=== PATIENT | female | born 1990 | race Caucasian/White ===

== ENCOUNTER 2016-11-16 10:07 | Emergency (ER) | payer BC, OTHER ==
[~2016-11-16] VITALS: Ht 157.5 cm; Wt 49.9 kg
[~2016-11-16 10:07] MED LIST: CYCL10TA9 PO; DOXY100C2 PO; HYDR-2997 PO; HYDR-3583 PO; HYDR1CAP2 PO; HYDR1TAB; HYDR1TAB PO; HYOS0.1283 SL; METH4TAB PO; NAPR-243 PO; OMEP20CA6; ONDA8TAB9 PO; PRM25T PO; SULF1TAB35 PO; SULF1TAB7 PO; TRAM-42 PO; TRM50T PO
--- OUTSIDE RECORDS SUMMARY | 2016-11-16 10:17 | XMS REPORT | Continuity of Care Document ---
Author Author [facility] Organization [facility] Address Unknown Phone Unavailable Care Team Providers Care Technical Training Specialist Name Role Phone Nitishminaghassan Jonathan PCP [phone] Source Comments Some departments are not documenting in the electronic medical record. If you do not see the information that you expected, contact Release of Information in the Health Information Management department at [phone] for further assistance in locating additional records.[facility] Active Allergies and Adverse Reactions No Known Allergies Current Medications Prescription Sig. Disp. Refills Start End Date Status Date citalopram (CELEXA) 10 mg Take 10 mg by mouth Active tablet daily. loratadine (CLARITIN) 10 Take 10 mg by mouth Active mg tablet daily. acetaminophen (TYLENOL) Take 325 mg by mouth as Active 325 mg tablet Needed. nebivolol (BYSTOLIC) 10 Take 10 mg by mouth Active mg tablet daily. magnesium Take 400 mEq by mouth Active daily. VITAMIN E (DL,TOCOPHERYL Take by mouth twice Active ACET) (VITAMIN E (DL, weekly. ACETATE) PO) ibuprofen (MOTRIN) 400 mg Take 400 mg by mouth Active tablet every 6 hours as needed. diphenhydrAMINE Take 25 mg by mouth every Active (BENADRYL) 25 mg capsule 6 hours as needed. Active Problems Problem Noted Date Thyroid nodule 02/08/2014 Cervical adenopathy 02/08/2014 Social History Tobacco Use Types Packs/Day Years Used Date Current Every Day Smoker Cigarettes 0.5 10 Smokeless Tobacco: Never Used Tobacco Cessation: Ready to Quit: Yes; Counseling Given: Yes Comments: Counseling given 02.08.14 Alcohol Use Drinks/Week oz/Week Comments No Last Filed Vital Signs Vital Sign Reading Time Taken Blood Pressure 101/65 04/12/2014 2:24 PM CDT Pulse 89 04/12/2014 2:24 PM CDT Temperature 36.8 C (98.2 F) 02/19/2014 10:42 AM CDT Respiratory Rate - - Height 1.575 m (5' 2") 04/12/2014 2:24 PM CDT Weight 67.858 kg (149 lb 9.6 oz) 04/12/2014 2:24 PM CDT Body Mass Index 27.36 04/12/2014 2:24 PM CDT Oxygen Saturation 93% 02/19/2014 12:30 PM CDT Plan of Care Health Maintenance Due Date Last Done Comments Physical (Comprehensive) 1995 Exam Pertussis Vaccine 1999 Tetanus Vaccine 2005 Cervical Cancer Screening 2009 Influenza Vaccine 06/25/2016 Results from Last 3 Months Not on file
[2016-11-16] MEDS ORDERED: DICY20TA10 PO (10:33)
[2016-11-16] MEDS ORDERED: BUSP5TAB59 PO (10:33)
[2016-11-16] MEDS ORDERED: CITA20TA12 PO (10:33)
[2016-11-16] MEDS ORDERED: METO-333 PO (10:33)
[2016-11-16] MEDS ORDERED: TRAM50TA2 PO (10:33)
[2016-11-16] MEDS ORDERED: HYDR-3820 PO (10:33)
[2016-11-16] MEDS ORDERED: [UNRECOGNIZED DRUG - OTHER] (10:38)
[2016-11-16 10:44] LABS: BASOPHILS % (AUTO) 0 % (0-10); EOSINOPHILS # (AUTO) 0.1 10^3/uL (0.0-0.3); EOSINOPHILS % (AUTO) 1 % (0-10); LYMPHOCYTES # (AUTO) 1.8 X 10^3 (1.0-4.0); LYMPHOCYTES % (AUTO) 28 % (12-44); MEAN CORPUSCULAR HEMOGLOBIN 30 PG (25-34); MEAN CORPUSCULAR HGB CONC 33 G/DL (32-36); MEAN CORPUSCULAR VOLUME 90 FL (80-99); MEAN PLATELET VOLUME 8.4 FL (7.4-10.4); MONOCYTES # (AUTO) 0.6 X 10^3 (0.0-1.0); MONOCYTES % (AUTO) 10 % (0-12); NEUTROPHILS # (AUTO) 3.9 X 10^3 (1.8-7.8); NEUTROPHILS % (AUTO) 61 % (42-75); PLATELET COUNT 343 10^3/uL (130-400); RED BLOOD COUNT 4.18 10^6/uL (4.35-5.85); RED CELL DISTRIBUTION WIDTH 13.1 % (10.0-14.5); WHITE BLOOD COUNT 6.3 10^3/uL (4.3-11.0)
[2016-11-16] MEDS ORDERED: fentaNYL INJECTION 100 MCG/2 ML AMP IVP ONE (10:45)
[2016-11-16] MEDS ORDERED: ONDANSETRON 4 MG/2 ML (SDV) Z0FRAN IVP ONE (10:45)
[2016-11-16] MEDS ORDERED: NS IV 1000 ML 1,000 ML IV SCH (10:45)
[2016-11-16 11:05] LABS: BILIRUBIN,URINE NEGATIVE (NEGATIVE); KETONES,URINE NEGATIVE (NEGATIVE); LEUKOCYTE ESTERASE ,URINE NEGATIVE (NEGATIVE); NITRITE,URINE NEGATIVE (NEGATIVE); PH,URINE 6.5 (5-9); PROTEIN,URINE NEGATIVE (NEGATIVE); UROBILINOGEN,URINE NORMAL (NORMAL)
[2016-11-16 11:09] LABS: ALANINE AMINOTRANSFERASE 27 U/L (0-55); ALBUMIN 4.1 G/DL (3.2-4.5); AMYLASE 40 U/L (25-125); ANION GAP 8 MMOL/L (5-14); ASPARTATE AMINO TRANSFERASE 15 U/L (5-34); BILIRUBIN,TOTAL 0.2 MG/DL (0.1-1.0); BLOOD UREA NITROGEN 12 MG/DL (7-18); BUN/CREATININE RATIO 19; CALCIUM 9.2 MG/DL (8.5-10.1); CARBON DIOXIDE 24 MMOL/L (21-32); CHLORIDE 109 MMOL/L (98-107); CREATININE SERUM 0.64 MG/DL (0.60-1.30); GFR ESTIMATED > 60; GLUCOSE 79 MG/DL (70-105); POTASSIUM 3.7 MMOL/L (3.6-5.0); SODIUM 141 MMOL/L (135-145); TOTAL PROTEIN 6.6 G/DL (6.4-8.2)
--- NOTE | 2016-11-16 11:09 | ED Abdominal Pain ---
General Chief Complaint: Abdominal/GI Problems Stated Complaint: ABD PAIN Nursing Triage Note: Pt c/o midline abd pain since Wednesday (11/13). Pt also c/o diarrhea. Pt denies n/v. Sepsis Screen: No Definite Risk Source of Information: Patient Exam Limitations: No Limitations History of Present Illness Time Seen By Provider: 11:06 Initial Comments To ER with midline abdominal pain and diarrhea which is bloody in nature since Monday 11/13. Denies nausea or vomiting. She states that she has a history of ulcerative colitis which she takes Asacol and Bentyl 4. She's also been taking Ultram and hydrocodone without relief. Primary care Dr. HOOKS. She states that she has a GI specialist in [facility] who "can't get me in for months". Timing/Duration: 2-3 Days Severity/Quality: Cramping Location: Generalized Abdomen Radiation: No Radiation Activities at Onset: None Associated Symptoms: Denies Symptoms Nausea/Vomiting Allergies and Home Medications Allergies Coded Allergies: NKANo Known Allergies (Verified Allergy, Unknown, 11/30/06) No Known Drug Allergies (Unverified , 01/26/09) Uncoded Allergies: DUST (Allergy, Unknown, 11/09/06) Home Medications Unknown Dose (Reported) Buspirone HCl 5 Mg Tablet 5 MG PO TID PRN PRN ANXIETY (Reported) Ciprofloxacin HCl 500 Mg Tablet #14 500 MG PO BID Prescribed by: DILCIA MEDEL on 11/16/16 1149 Citalopram Hydrobromide 20 Mg Tablet 20 MG PO DAILY (Reported) Dicyclomine HCl 20 Mg Tablet Unknown Dose PO QID (Reported) Hydrocodone/Acetaminophen 1 Each Tablet #180 1 TAB PO Q4H (Reported) Metoprolol Tartrate 25 Mg Tablet #30 25 MG PO DAILY (Reported) Metronidazole 500 Mg Tablet #14 500 MG PO BID Prescribed by: DILCIA MEDEL on 11/16/16 1149 Prednisone 5 Mg Tablet #78 5 MG PO UD 60 mg on day 1 then reduced by one tablet daily until gone Prescribed by: DILCIA MEDEL on 11/16/16 1148 Tramadol HCl 50 Mg Tablet #80 50 MG PO PRN PRN PRN PAIN (Reported) Review of Systems Constitutional: see HPI EENTM: No Symptoms Reported Respiratory: No Symptoms Reported Cardiovascular: No Symptoms Reported Gastrointestinal: See HPI Abdominal Pain Diarrhea Genitourinary: No Symptoms Reported Musculoskeletal: no symptoms reported Skin: no symptoms reported Psychiatric/Neurological: No Symptoms Reported Endocrine: No Symptoms Reported Hematologic/Lymphatic: No Symptoms Reported Past Zckpeyf-[id number] Hx Patient Social History Alcohol Use: Denies Use Recreational Drug Use: No Smoking Status: Current Someday Smoker Recent Foreign Travel: No Contact w/Someone Who Travel: No Recent Infectious Disease Expo: No Recent Hopitalizations: No Physical Abuse Screen: No Sexual Abuse: No Immunizations Up To Date Tetanus Booster (TDap): Unknown Surgeries HX Surgeries: Yes Surgeries: Abdominal, Appendectomy, Gallbladder, Hysterectomy, Oophorectomy Respiratory Hx Respiratory Disorders: No Cardiovascular Hx Cardiac Disorders: Yes Cardiac Disorders: High Cholesterol Neurological Hx Neurological Disorders: No Reproductive System Hx Reproductive Disorders: No Sexually Transmitted Disease: No Female Reproductive Disorders: Endometriosis, Ovarian 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 Genitourinary Hx Genitourinary Disorders: No Gastrointestinal Hx Gastrointestinal Disorders: Yes (ULCERATIVE COLITIS) Gastrointestinal Disorders: Colitis, Gastroesophageal Reflux, Irritable Bowel Musculoskeletal Hx Musculoskeletal Disorders: No Endocrine Hx Endocrine Disorders: Yes Endocrine Disorders: Hyperthyroidism HEENT HX ENT Disorders: No Cancer Hx Cancer: No Psychosocial Hx Psychiatric Problems: No Integumentary HX Skin/Integumentary Disorder: No Blood Transfusions Hx Blood Disorders: No Family Medical History Significant Family History: No Pertinent Family Hx Physical Exam Vital Signs VS - Last 72 Hours, by Label 11/16/16 11/16/16 10:22 11:04 Temp 97.5 97.5 Pulse 98 Resp 18 B/P 122/83 Pulse Ox 100 O2 Delivery Room Air Capillary Refill : Less Than 3 Seconds General Appearance: WD/WN no apparent distress HEENT: PERRL/EOMI normal ENT inspection Neck: non-tender full range of motion Respiratory: normal breath sounds no respiratory distress no accessory muscle use Cardiovascular: regular rate, rhythm no murmur Gastrointestinal: normal bowel sounds non tender soft other (constantly rubbing her abdomen, pressing on it. ) Extremities: normal range of motion non-tender Neurologic/Psychiatric: alert normal mood/affect oriented x 3 Skin: normal color warm/dry Progress/Results/Core Measures Results/Orders Lab Results Laboratory Tests Test 11/16/16 10:38 11/16/16 11:00 Range/Units Alanine Aminotransferase (ALT/SGPT) 27 0-55 U/L Albumin 4.1 3.2-4.5 G/DL Alkaline Phosphatase 80 40-136 U/L Amylase Level 40 25-125 U/L Anion Gap 8 5-14 MMOL/L Aspartate Amino Transf (AST/SGOT) 15 5-34 U/L BUN/Creatinine Ratio 19 Basophils # (Auto) 0.0 0.0-0.1 10^3/uL Basophils (%) (Auto) 0 0-10 % Blood Urea Nitrogen 12 7-18 MG/DL Calcium Level 9.2 8.5-10.1 MG/DL Carbon Dioxide Level 24 21-32 MMOL/L Chloride Level 109 H 98-107 MMOL/L Creatinine 0.64 0.60-1.30 MG/DL Eosinophils # (Auto) 0.1 0.0-0.3 10^3/uL Eosinophils (%) (Auto) 1 0-10 % Estimat Glomerular Filtration Rate > 60 Glucose Level 79 70-105 MG/DL Hematocrit 38 35-52 % Hemoglobin 12.6 11.5-16.0 G/DL Lymphocytes # (Auto) 1.8 1.0-4.0 X 10^3 Lymphocytes (%) (Auto) 28 12-44 % Mean Corpuscular Hemoglobin 30 25-34 PG Mean Corpuscular Hemoglobin Concent 33 32-36 G/DL Mean Corpuscular Volume 90 80-99 FL Mean Platelet Volume 8.4 7.4-10.4 FL Monocytes # (Auto) 0.6 0.0-1.0 X 10^3 Monocytes (%) (Auto) 10 0-12 % Neutrophils # (Auto) 3.9 1.8-7.8 X 10^3 Neutrophils (%) (Auto) 61 42-75 % Platelet Count 343 130-400 10^3/uL Potassium Level 3.7 3.6-5.0 MMOL/L Red Blood Count 4.18 L 4.35-5.85 10^6/uL Red Cell Distribution Width 13.1 10.0-14.5 % Sodium Level 141 135-145 MMOL/L Total Bilirubin 0.2 0.1-1.0 MG/DL Total Protein 6.6 6.4-8.2 G/DL White Blood Count 6.3 4.3-11.0 10^3/uL Ur Tricyclic Antidepressants Screen NEGATIVE NEGATIVE Urine Amphetamines Screen NEGATIVE NEGATIVE Urine Bacteria NEGATIVE /HPF Urine Barbiturates Screen NEGATIVE NEGATIVE Urine Benzodiazepines Screen NEGATIVE NEGATIVE Urine Bilirubin NEGATIVE NEGATIVE Urine Cannabinoids Screen NEGATIVE NEGATIVE Urine Casts NONE /LPF Urine Clarity CLEAR Urine Cocaine Screen NEGATIVE NEGATIVE Urine Color YELLOW Urine Crystals NONE /LPF Urine Culture Indicated NO Urine Glucose (UA) NEGATIVE NEGATIVE Urine Ketones NEGATIVE NEGATIVE Urine Leukocyte Esterase NEGATIVE NEGATIVE Urine Methadone Screen NEGATIVE NEGATIVE Urine Methamphetamines Screen NEGATIVE NEGATIVE Urine Mucus NEGATIVE /LPF Urine Nitrite NEGATIVE NEGATIVE Urine Opiates Screen POSITIVE H NEGATIVE Urine Oxycodone Screen NEGATIVE NEGATIVE Urine Phencyclidine Screen NEGATIVE NEGATIVE Urine Propoxyphene Screen NEGATIVE NEGATIVE Urine Protein NEGATIVE NEGATIVE Urine RBC NONE /HPF Urine RBC (Auto) NEGATIVE NEGATIVE Urine Specific [place] 1.010 L 1.016-1.022 Urine Squamous Epithelial Cells 0-2 /HPF Urine Urobilinogen NORMAL NORMAL MG/DL Urine WBC NONE /HPF Urine pH 6.5 5-9 My Orders Orders-DILCIA MEDEL APRN Drug Screen Stat (Urine) (11/16/16 11:06) Ct Abdomen/Pelvis W (11/16/16 11:09) Iohexol Injection (Omnipaque 350 Mg/Ml 1 (11/16/16 11:15) Ns (Ivpb) (Sodium Chloride 0.9% Ivpb Bag (11/16/16 11:15) Ketorolac Injection (Toradol Injection) (11/16/16 12:15) Medications Given in ED Current Medications Medications Dose Ordered Sig/[place] Route Start Time Stop Time Status Last Admin Dose Admin Fentanyl Citrate 50 mcg ONCE ONCE IVP 11/16/16 10:45 11/16/16 10:46 DC 11/16/16 11:04 50 MCG Iohexol 100 ml ONCE ONCE IV 11/16/16 11:15 11/16/16 11:16 DC 11/16/16 11:31 100 ML Ondansetron HCl 4 mg ONCE ONCE IVP 11/16/16 10:45 11/16/16 10:46 DC 11/16/16 11:04 4 MG Sodium Chloride 100 ml ONCE ONCE IV 11/16/16 11:15 11/16/16 11:16 DC 11/16/16 11:31 80 ML Vital Signs/I&O Vital Sign - Last 12Hours 11/16/16 11/16/16 10:22 11:04 Temp 97.5 97.5 Pulse 98 Resp 18 B/P 122/83 Pulse Ox 100 O2 Delivery Room Air Blood Pressure Mean: 96 Departure Impression Impression: Primary Impression: Abdominal pain Qualified Code: R10.84 - Generalized abdominal pain Additional Impression: History of ulcerative colitis Disposition: 01 HOME, SELF-CARE Condition: Stable Departure-Patient Inst. Decision time for Depature: 11:46 Referrals: NO,LOCAL PHYSICIAN (PCP/Family) Primary Care Physician Patient Instructions: Acute Abdomen (Belly Pain), Adult (DC) Add. Discharge Instructions: 1. Clear liquids for the next 24 hours 2. Steroids as directed 3. Follow-up with your doctor next week 4. Continue taking your pain medication as needed All discharge instructions reviewed with patient and/or family. Voiced understanding. Scripts Metronidazole (Flagyl)500 Mg [id number] Mg PO BID #14 TAB Prov:DILCIA MEDEL COMPO CONVEYOR OPERATOR 11/16/16 Ciprofloxacin HCl (Cipro)500 Mg [id number] Mg PO BID #14 TAB Prov:DILCIA MEDEL COMPO CONVEYOR OPERATOR 11/16/16 Prednisone 5 Mg Tablet5 Mg PO UD #78 TAB 60 mg on day 1 then reduced by one tablet daily until gone Prov:DILCIA MEDEL APRN 11/16/16 DILCIA MEDEL APRN Nov 16, 2016 11:09
[2016-11-16 11:12] LABS: SQUAMOUS EPITHELIAL CELL,UR 0-2 /HPF
[2016-11-16] MEDS ORDERED: NS 100 ML (IVPB) BAG IV ONE (11:15)
[2016-11-16] MEDS ORDERED: IOHEXOL 350 MG/ML 100 ML (OMNIPAQUE 350) VIAL IV ONE (11:15)
[2016-11-16] MEDS ORDERED: PRED5TAB PO (11:48)
[2016-11-16] MEDS ORDERED: CIPR-225 PO (11:49)
[2016-11-16] MEDS ORDERED: METR500T PO (11:49)
--- NOTE | 2016-11-16 11:52 | Diagnostic Imaging Report ---
PROCEDURE: CT abdomen and pelvis with contrast. TECHNIQUE: Multiple contiguous axial images were obtained through the abdomen and pelvis after administration of intravenous contrast. INDICATION: Left lower quadrant pain x4 days The lung bases are clear. Liver appears normal. The gallbladder is surgically absent. The spleen is not enlarged. There are no pancreatic masses. Adrenals and kidneys appear normal. Aorta and IVC appear normal. Small bowel is not dilated. Uterus is surgically absent. There is no intraperitoneal free air or free fluid. The appendix appears to be surgically absent. Impression: Postsurgical changes in the abdomen and pelvis as noted. There are no acute abnormality seen. Dictated by: Dictated on workstation # [id number]
[2016-11-16] MEDS ORDERED: KETOROLAC 30 MG/ML VIAL IVP ONE (12:15)
[2016-11-16 12:25] VITALS: BP 118/80
== END 2016-11-16 12:25 | disposition home or self-care (01) ==
LOC: EDUNIT# 10:07 → ER 10:13
DX: R10.84 Generalized abdominal pain (principal); K51.90 Ulcerative colitis, unspecified, without complications; F17.210 Nicotine dependence, cigarettes, uncomplicated; Z79.899 Other long term (current) drug therapy; Z90.49 Acquired absence of other specified parts of digestive tract; Z90.710 Acquired absence of both cervix and uterus
CPT/HCPCS: 36415; 74177; 80053; 80306; 81000; 82150; 85025; 96374; 96375

== ENCOUNTER 2016-11-30 19:05 | Emergency (ER) | payer BC ==
[~2016-11-30] VITALS: Ht 157.5 cm; Wt 49.9 kg
[~2016-11-30 19:05] MED LIST changes: +BUSP5TAB59 PO; +CIPR-225 PO; +CITA20TA12 PO; +DICY20TA10 PO; +HYDR-3820 PO; +METO-333 PO; +METR500T PO; +PRED5TAB PO; +TRAM50TA2 PO; +[UNRECOGNIZED DRUG - OTHER]
--- OUTSIDE RECORDS SUMMARY | 2016-11-30 19:11 | XMS REPORT | Continuity of Care Document ---
Author Author [facility] Organization [facility] Address Unknown Phone Unavailable Care Team Providers Care Principal Hardware Architect Name Role Phone Nitishmianghassan Jonathan PCP [phone] Source Comments Some departments are not documenting in the electronic medical record. If you do not see the information that you expected, contact Release of Information in the Health Information Management department at [phone] for further assistance in locating additional records.[facility] Active Allergies and Adverse Reactions No Known [...]
[2016-11-30] MEDS ORDERED: NS IV 1000 ML 1,000 ML IV ONE (20:15)
[2016-11-30 20:22] LABS: BASOPHILS % (AUTO) 0 % (0-10); EOSINOPHILS % (AUTO) 0 % (0-10); LYMPHOCYTES # (AUTO) 0.8 X 10^3 (1.0-4.0); LYMPHOCYTES % (AUTO) 9 % (12-44); MEAN CORPUSCULAR HEMOGLOBIN 30 PG (25-34); MEAN CORPUSCULAR HGB CONC 33 G/DL (32-36); MEAN CORPUSCULAR VOLUME 92 FL (80-99); MEAN PLATELET VOLUME 8.7 FL (7.4-10.4); MONOCYTES # (AUTO) 0.1 X 10^3 (0.0-1.0); MONOCYTES % (AUTO) 1 % (0-12); NEUTROPHILS # (AUTO) 7.6 X 10^3 (1.8-7.8); NEUTROPHILS % (AUTO) 89 % (42-75); PLATELET COUNT 307 10^3/uL (130-400); RED BLOOD COUNT 4.01 10^6/uL (4.35-5.85); RED CELL DISTRIBUTION WIDTH 13.5 % (10.0-14.5); WHITE BLOOD COUNT 8.5 10^3/uL (4.3-11.0)
[2016-11-30] MEDS ORDERED: NS 100 ML (IVPB) BAG IV ONE (20:30)
[2016-11-30] MEDS ORDERED: ONDANSETRON 4 MG/2 ML (SDV) Z0FRAN IVP ONE (20:30)
[2016-11-30] MEDS ORDERED: KETOROLAC 30 MG/ML VIAL IVP ONE (20:30)
[2016-11-30] MEDS ORDERED: IOHEXOL 350 MG/ML 100 ML (OMNIPAQUE 350) VIAL IV ONE (20:30)
[2016-11-30] MEDS ORDERED: PANTOPRAZOLE 40 MG/10 ML (PROTONIX) VIAL IV ONE (20:30)
--- NOTE | 2016-11-30 20:35 | ED Abdominal Pain ---
General Chief Complaint: Abdominal/GI Problems Stated Complaint: ULCERATIVE COLITIS/STOMACH PAIN/BLOOD IN STOOL Nursing Triage Note: pt reports advised by pcp's rn bsn in [facility], [place] to come to [facility] to be admitted for ulcerative colitis flare up. pt advised to present to [place] but stated she wanted to come here. pt reports flare up lasting for months despite treatment.c/o dark stools/diarrhea. Sepsis Screen: No Definite Risk Source of Information: Patient, Other (FEMALE FRIEND TRIES TO DO ALL TALKING FOR PT) History of Present Illness Time Seen By Provider: 20:15 Initial Comments PT ARRIVES VIA POV C/O CHRONIC ABDOMINAL PAIN --GIVES VERY ELABORATE AND CONVOLUTED STORY STATES THIS EPISODE STARTED 2 WEEKS AGO STATES SHE HAD FEVER OF 101 TWO DAYS AGO NO NAUSEA, NO VOMITING C/O DIARRHEA AND BLACK STOOLS--ONGOING PROBLEM--STATES 7 STOOLS TODAY C/O "NO APPETITE" BUT ATE SOFT STEAK TACOS IMMEDIATELY PRIOR TO ARRIVAL. STATES SHE HAS NOT EATEN ANYTHING ELSE TODAY. HAS BEEN DRINKING WATER AND DR. MCKEON TODAY. PT STATES SHE HAS "ULCERATIVE COLITIS" AND SEES A SPECIALIST IN EVERY 3 MONTHS STATES SHE IS ON "3 DIFFERENT TYPES OF INFECTION MEDICINES AND PREDNISONE" "BECAUSE I HAVE A SEVERE INFECTION --THEY DON'T KNOW WHERE OR WHAT KIND OF INFECTION I HAVE" --STATES SHE IS ON CIPRO AND FLAGYL AND PREDNISONE. STATES SHE SAW WHITING CAN WORKER AT DR. HOOKS'S OFFICE IN [facility] TODAY AND TOLD HER SHE "NEEDED TO BE ADMITTED TO THE HOSPITAL IMMEDIATELY" AND WAS TOLD TO GO TO [place], THEN TO [place], THEN TO IMMEDIATELY COME HERE TO [place] AND BE IMMEDIATELY ADMITTED HERE" AND SHE "NEEDED IMMEDIATE CT SCAN" --EVEN THOUGH DR. HOOKS IS IN [facility], AND ALSO HAS ADMITTING PRIVILEGES IN [place] --YET DID NOT ATTEMPT TO DIRECT ADMIT HER , ORDER ANY LABS TODAY OR ORDER OUTPATIENT CT ANYWHERE. PT STATES SHE HAS HAD BLACK STOOLS AND IS "SEVERELY ANEMIC" AND HER "WHITE BLOOD COUNT IS EXTREMELY LOW" PT STATES THIS IS A CHRONIC PROBLEM FOR YEARS AND "GETS THIS EVERY SINGLE MONTH " PT TAKES HYDROCODONE AND TRAMADOL DAILY FOR CHRONIC ABDOMINAL PAIN COMPLAINTS. PER [facility], PT FILLED RX'S FOR HYDROCODONE #42 AND FOR # 180 ON 11/03/16 ADN #180 ON 10/20/16, AND TRAMADOL #56 ON 11/27/16 AND TRAMADOL #80 ON 11/18/16 AND #80 ON 11/03/16, RX'S BY MULTIPLE PROVIDERS AND FILLED AT MULTIPLE PHARMACIES IN BOTH [place] AND [facility] IN [place]. PT SEEN HERE 11/16/16 FOR SAME-WORK UP NEGATIVE, INCLUDING CT, AT THAT TIME -- WAS STARTED ON CIPRO, FLAGYL AND PREDNISONE TAPER AT THAT TIME. PT STATES SHE WAS GIVEN ANOTHER ROUND OF ALL 3 MEDICATIONS AFTER THE ABOVE WAS FINISHED. PT STATES SHE TOOK HER LAST DOSES TODAY. PCP: DR. BRIGIDO HOOKS IN [facility] Allergies and Home Medications Allergies Coded Allergies: NKANo Known Allergies (Verified Allergy, Unknown, 11/30/06) No Known Drug Allergies (Unverified , 01/26/09) Uncoded Allergies: DUST (Allergy, Unknown, 11/09/06) Home Medications Unknown Dose (Reported) Buspirone HCl 5 Mg Tablet 5 MG PO TID PRN PRN ANXIETY (Reported) Ciprofloxacin HCl 500 Mg Tablet #14 500 MG PO BID Prescribed by: DILCIA MEDEL on 11/16/16 1149 Citalopram Hydrobromide 20 Mg Tablet 20 MG PO DAILY (Reported) Dicyclomine HCl 20 Mg Tablet Unknown Dose PO QID (Reported) Dicyclomine HCl 10 Mg Capsule #20 10-20 MG PO Q6H PRN PRN ABDOMINAL PAIN Prescribed by: SERAFIN HAHN on 11/30/16 2223 Hydrocodone/Acetaminophen 1 Each Tablet #180 1 TAB PO Q4H (Reported) Hyoscyamine Sulfate 0.125 Mg Tab.subl #15 1-2 TAB SL Q4H Prescribed by: SERAFIN HAHN on 11/30/16 2211 Metoprolol Tartrate 25 Mg Tablet #30 25 MG PO DAILY (Reported) Metronidazole 500 Mg Tablet #14 500 MG PO BID Prescribed by: DILCIA MEDEL on 11/16/16 1149 Pantoprazole Sodium 40 Mg Tablet.dr #15 40 MG PO DAILY Prescribed by: SERAFIN HAHN on 11/30/16 2211 Prednisone 5 Mg Tablet #78 5 MG PO UD 60 mg on day 1 then reduced by one tablet daily until gone Prescribed by: DILCIA MEDEL on 11/16/16 1148 Sucralfate 1 Gm/10 Ml Oral.susp #400 1 GM PO QID AC AND HS Prescribed by: SERAFIN HAHN on 11/30/16 2211 Tramadol HCl 50 Mg Tablet #80 50 MG PO PRN PRN PRN PAIN (Reported) Review of Systems Constitutional: see HPI fever malaise weakness EENTM: No Symptoms Reported Respiratory: No Symptoms Reported Cardiovascular: No Symptoms Reported Gastrointestinal: See HPI Diarrhea Nausea Poor Appetite Poor Fluid Intake Rectal Bleeding Vomiting Genitourinary: No Symptoms Reported Musculoskeletal: no symptoms reported Skin: no symptoms reported Psychiatric/Neurological: Anxiety Endocrine: No Symptoms Reported Hematologic/Lymphatic: See HPI Past Porbdff-Uwwagw-Bfkfsm Hx Patient Social History Alcohol Use: Denies Use Recreational Drug Use: No Smoking Status: Current Everyday Smoker (/ PPD) Type Used: Cigarettes Recent Foreign Travel: No Contact w/Someone Who Travel: No Recent Infectious Disease Expo: No Recent Hopitalizations: No Immunizations Up To Date Tetanus Booster (TDap): Unknown Seasonal Allergies Seasonal Allergies: No Surgeries HX Surgeries: Yes (NECK TUMOR/ LYMPH NODE EXCISION; LAV HYST/BSO; COLONOSCOPY/ EGD; LAPAROSCOPIES X 8--4 FOR LYSIS OF ENDOMETRIOSIS AND 4 FOR OVARIAN CYSTS PER PT. 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 History: Hysterectomy Genitourinary Hx Genitourinary Disorders: No Gastrointestinal Hx Gastrointestinal Disorders: Yes (ULCERATIVE COLITIS) Gastrointestinal Disorders: Colitis, Gastroesophageal Reflux, Irritable Bowel Musculoskeletal Hx Musculoskeletal Disorders: No Endocrine Hx Endocrine Disorders: No HEENT HX ENT Disorders: Yes (POOR DENTITION, ENLARGED CERVICAL LYMPH NODE) Cancer Hx Cancer: No Psychosocial Hx Psychiatric Problems: Yes Behavioral Health Disorders: Anxiety, Depression Integumentary HX Skin/Integumentary Disorder: No Blood Transfusions Hx Blood Disorders: No Family Medical History Significant Family History: No Pertinent Family Hx Physical Exam Vital Signs VS - Last 72 Hours, by Label 11/30/16 11/30/16 19:52 22:29 Temp 98.7 98.7 Pulse 113 74 Resp 18 18 B/P 110/62 Pulse Ox 98 98 O2 Delivery Room Air Capillary Refill : Less Than 3 Seconds General Appearance: WD/WN other (EXTREMELY DRAMATIC, HOLDING AND CONSTANTLY PUSHING ON ABDOMEN, WRITHING--ALL THIS STOPS WHEN DISTRACTED. ) HEENT: PERRL/EOMI other (ORAL MUCOSA MOIST. POOR DENTITION, MANY TEETH DECAYED DOWN TO GUMS) Respiratory: normal breath sounds no respiratory distress no accessory muscle use Cardiovascular: normal peripheral pulses regular rate, rhythm no edema no murmur Gastrointestinal: soft no organomegaly no pulsatile mass abnormal bowel sounds (HYPER ACTIVE)No distended, guardingNo rebound, tenderness (DIFFUSE TENDERNESS)No hernia, No mass Rectal: normal exam normal rectal tone heme negative stool Extremities: normal range of motion normal inspection no pedal edema no calf tenderness normal capillary refill Back: normal inspection no CVA tenderness Neurologic/Psychiatric: newborn photographer II-XII nml as tested no motor/sensory deficits alert oriented x 3 other (BEHAVIOR NOTED ABOVE) Skin: normal color warm/dry Progress/Results/Core Measures Results/Orders Lab Results Laboratory Tests Test 11/30/16 20:13 11/30/16 20:32 Range/Units Activated Partial Thromboplast Time 28 24-35 SEC Alanine Aminotransferase (ALT/SGPT) 17 0-55 U/L Albumin 4.2 3.2-4.5 G/DL Alkaline Phosphatase 61 40-136 U/L Amylase Level 25 25-125 U/L Anion Gap 10 5-14 MMOL/L Aspartate Amino Transf (AST/SGOT) 14 5-34 U/L BUN/Creatinine Ratio 14 Band Neutrophils 0 % Basophils # (Auto) 0.0 0.0-0.1 10^3/uL Basophils % (Manual) 1 % Basophils (%) (Auto) 0 0-10 % Blood Morphology Comment NORMAL Blood Urea Nitrogen 10 7-18 MG/DL Calcium Level 8.9 8.5-10.1 MG/DL Carbon Dioxide Level 25 21-32 MMOL/L Chloride Level 107 98-107 MMOL/L Creatinine 0.70 0.60-1.30 MG/DL Eosinophils # (Auto) 0.0 0.0-0.3 10^3/uL Eosinophils % (Manual) 0 % Eosinophils (%) (Auto) 0 0-10 % Erythrocyte Sedimentation Rate 8 0-20 MM/HR Estimat Glomerular Filtration Rate > 60 Glucose Level 124 H 70-105 MG/DL Hematocrit 37 35-52 % Hemoglobin 12.1 11.5-16.0 G/DL INR Comment 0.9 0.8-1.4 Lipase 29 8-78 U/L Lymphocytes # (Auto) 0.8 L 1.0-4.0 X 10^3 Lymphocytes % (Manual) 11 % Lymphocytes (%) (Auto) 9 L 12-44 % Magnesium Level 2.3 1.8-2.4 MG/DL Mean Corpuscular Hemoglobin 30 25-34 PG Mean Corpuscular Hemoglobin Concent 33 32-36 G/DL Mean Corpuscular Volume 92 80-99 FL Mean Platelet Volume 8.7 7.4-10.4 FL Monocytes # (Auto) 0.1 0.0-1.0 X 10^3 Monocytes % (Manual) 0 % Monocytes (%) (Auto) 1 0-12 % Neutrophils # (Auto) 7.6 1.8-7.8 X 10^3 Neutrophils % (Manual) 88 % Neutrophils (%) (Auto) 89 H 42-75 % Platelet Count 307 130-400 10^3/uL Potassium Level 3.7 3.6-5.0 MMOL/L Prothrombin Time 11.3 L 12.2-14.7 SEC Red Blood Count 4.01 L 4.35-5.85 10^6/uL Red Cell Distribution Width 13.5 10.0-14.5 % Serum Test, Qualitative NEGATIVE NEGATIVE Sodium Level 142 135-145 MMOL/L Total Bilirubin 0.1 0.1-1.0 MG/DL Total Protein 6.4 6.4-8.2 G/DL White Blood Count 8.5 4.3-11.0 10^3/uL Ur Tricyclic Antidepressants Screen NEGATIVE NEGATIVE Urine Amphetamines Screen POSITIVE H NEGATIVE Urine Bacteria NEGATIVE /HPF Urine Barbiturates Screen NEGATIVE NEGATIVE Urine Benzodiazepines Screen NEGATIVE NEGATIVE Urine Bilirubin NEGATIVE NEGATIVE Urine Cannabinoids Screen NEGATIVE NEGATIVE Urine Casts NONE /LPF Urine Clarity CLEAR Urine Cocaine Screen NEGATIVE NEGATIVE Urine Color YELLOW Urine Crystals NONE /LPF Urine Culture Indicated NO Urine Glucose (UA) NEGATIVE NEGATIVE Urine Ketones NEGATIVE NEGATIVE Urine Leukocyte Esterase NEGATIVE NEGATIVE Urine Methadone Screen NEGATIVE NEGATIVE Urine Methamphetamines Screen NEGATIVE NEGATIVE Urine Mucus NEGATIVE /LPF Urine Nitrite NEGATIVE NEGATIVE Urine Opiates Screen POSITIVE H NEGATIVE Urine Oxycodone Screen NEGATIVE NEGATIVE Urine Phencyclidine Screen NEGATIVE NEGATIVE Urine Propoxyphene Screen NEGATIVE NEGATIVE Urine Protein NEGATIVE NEGATIVE Urine RBC NONE /HPF Urine RBC (Auto) NEGATIVE NEGATIVE Urine Specific [place] 1.015 L 1.016-1.022 Urine Urobilinogen NORMAL NORMAL MG/DL Urine WBC RARE /HPF Urine pH 6 5-9 My Orders Orders-SERAFIN HAHN DO Saline Lock/Iv-Start (11/30/16 20:15) Orthostatic Vital Signs (11/30/16 20:15) Amylase (11/30/16 20:15) Cbc With Automated Diff (11/30/16 20:15) Comprehensive Metabolic Panel (11/30/16 20:15) Drug Screen Stat (Urine) (11/30/16 20:15) Hcg,Qualitative Serum (11/30/16 20:15) Lipase (11/30/16 20:15) Magnesium (11/30/16 20:15) Protime With Inr (11/30/16 20:15) Partial Thromboplastin Time (11/30/16 20:15) Ua Culture If Indicated (11/30/16 20:15) Erythrocyte Sedimentation Rate (11/30/16 20:15) Ct Abdomen/Pelvis W (11/30/16 20:15) Acute Abd Series (11/30/16 20:15) Saline Lock/Iv-Start (11/30/16 20:15) Ns Iv 1000 Ml (Sodium Chloride 0.9%) (11/30/16 20:15) Iohexol Injection (Omnipaque 350 Mg/Ml 1 (11/30/16 20:30) Ns (Ivpb) (Sodium Chloride 0.9% Ivpb Bag (11/30/16 20:30) Ketorolac Injection (Toradol Injection) (11/30/16 20:30) Pantoprazole Injection (Protonix Injecti (11/30/16 20:30) Ondansetron Injection (Zofran Injectio (11/30/16 20:30) Manual Differential (11/30/16 20:13) Diphenhydramine Injection (Benadryl Inje (11/30/16 21:45) Dicyclomine Injection (Bentyl Injection) (11/30/16 21:45) Medications Given in ED Current Medications Medications Dose Ordered Sig/Sapphire Route Start Time Stop Time Status Last Admin Dose Admin Dicyclomine HCl 20 mg ONCE ONCE IM 11/30/16 21:45 11/30/16 21:46 DC 11/30/16 21:44 20 MG Diphenhydramine HCl 50 mg ONCE ONCE IM 11/30/16 21:45 11/30/16 21:46 DC 11/30/16 21:43 50 MG Iohexol 100 ml ONCE ONCE IV 11/30/16 20:30 11/30/16 20:31 DC 11/30/16 20:53 100 ML Ketorolac Tromethamine 30 mg ONCE ONCE IVP 11/30/16 20:30 11/30/16 20:31 DC 11/30/16 21:09 30 MG Ondansetron HCl 4 mg ONCE ONCE IVP 11/30/16 20:30 11/30/16 20:31 DC 11/30/16 21:09 4 MG Pantoprazole 40 mg ONCE ONCE IV 11/30/16 20:30 11/30/16 20:31 DC 11/30/16 21:08 40 MG Sodium Chloride 100 ml ONCE ONCE IV 11/30/16 20:30 11/30/16 20:31 DC 11/30/16 20:53 100 ML Sodium Chloride 1,000 ml @ 0 mls/hr Q0M ONCE IV 11/30/16 20:15 11/30/16 20:17 DC 11/30/16 20:29 0 MLS/HR Vital Signs/I&O Vital Sign - Last 12Hours 11/30/16 11/30/16 19:52 22:29 Temp 98.7 98.7 Pulse 113 74 Resp 18 18 B/P 110/62 Pulse Ox 98 98 O2 Delivery Room Air Blood Pressure Mean: 78 Progress Note : Progress Note NO STOOLS DURING ER STAY PT STATES NO SIGNIFICANT IMPROVEMENT IN PAIN, BUT PT SITTING ON SIDE OF BED SWINGING LEGS BACK AND FORTH, TEXTING PRIOR TO DISMISSAL AND DOES NOT APPEAR TO BE IN ANY DISCOMFORT WHATSOEVER. NOT HOLDING ABDOMEN. WALKS UPRIGHT AND MOVES QUICKLY WITHOUT DIFFICULTY Diagnostic Imaging Comments ACUTE ABDOMEN XRAYS--POSSIBLE MILD ENTERITIS CT ABDOMEN/PELVIS--POSSIBLE MILD ENTERITIS PER RADIOLOGIST REPORTS @ 2135 Reviewed: Reviewed by Me Departure Impression Impression: Primary Impression: Chronic abdominal pain Additional Impression: Chronic narcotic use Disposition: HOME, SELF-CARE Condition: Stable Departure-Patient Inst. Referrals: ANH HOOKS DO NO,LOCAL PHYSICIAN (PCP) Primary Care Physician Patient Instructions: CHRONIC PAIN, MANAGING YOUR CHRONIC PAIN Add. Discharge Instructions: CLEAR LIQUIDS--WATER , BROTH, JELLO, GATORADE TOMORROW IF YOU ARE BETTER, ADD BRATS DIET TO CLEAR LIQUIDS--BANANAS, RICE, APPLESAUCE, TOAST, SALTINES FOLLOW UP WITH YOUR DR THIS WEEK FOR FURTHER CARE All discharge instructions reviewed with patient and/or family. Voiced understanding. Scripts Dicyclomine HCl (Bentyl)10 Mg [id number] Mg PO Q6H PRN ABDOMINAL PAIN #20 CAP Prov:SERAFIN HAHN DO 11/30/16 Hyoscyamine Sulfate (Levsin-Sl)0.125 Mg Tab.subl1-2 Tab SL Q4H Abdominal Pain # 15 TAB Prov:SERAFIN HAHN DO 11/30/16 Sucralfate (Carafate)1 Gm/10 Ml Oral.susp1 Gm PO QID AC AND HS #400 ML Prov:SERAFIN HAHN K DO 11/30/16 Pantoprazole Sodium (Protonix)40 Mg Tablet.dr40 Mg PO DAILY #15 TAB Prov:SERAFIN HAHN DO 11/30/16 SERAFIN HAHN DO Nov 30, 2016 20:35
[2016-11-30 20:37] LABS: INR 0.9 (0.8-1.4); PROTHROMBIN TIME PATIENT 11.3 SEC (12.2-14.7)
[2016-11-30 20:41] LABS: BILIRUBIN,URINE NEGATIVE (NEGATIVE); KETONES,URINE NEGATIVE (NEGATIVE); LEUKOCYTE ESTERASE ,URINE NEGATIVE (NEGATIVE); NITRITE,URINE NEGATIVE (NEGATIVE); PH,URINE 6 (5-9); PROTEIN,URINE NEGATIVE (NEGATIVE); UROBILINOGEN,URINE NORMAL (NORMAL)
[2016-11-30 20:41] LABS: ALANINE AMINOTRANSFERASE 17 U/L (0-55); ALBUMIN 4.2 G/DL (3.2-4.5); AMYLASE 25 U/L (25-125); ANION GAP 10 MMOL/L (5-14); ASPARTATE AMINO TRANSFERASE 14 U/L (5-34); BILIRUBIN,TOTAL 0.1 MG/DL (0.1-1.0); BLOOD UREA NITROGEN 10 MG/DL (7-18); BUN/CREATININE RATIO 14; CALCIUM 8.9 MG/DL (8.5-10.1); CARBON DIOXIDE 25 MMOL/L (21-32); CHLORIDE 107 MMOL/L (98-107); GFR ESTIMATED > 60; GLUCOSE 124 MG/DL (70-105); LIPASE 29 U/L (8-78); MAGNESIUM 2.3 MG/DL (1.8-2.4); POTASSIUM 3.7 MMOL/L (3.6-5.0); SODIUM 142 MMOL/L (135-145); TOTAL PROTEIN 6.4 G/DL (6.4-8.2)
[2016-11-30 20:49] LABS: WBC,URINE RARE /HPF
--- NOTE | 2016-11-30 21:00 | Diagnostic Imaging Report ---
INDICATION: Onset of abdominal pain 2 weeks ago, history of ulcerative colitis. FINDINGS: Upright view of the chest demonstrates the lungs to be clear. The heart, mediastinum, and pulmonary vascularity are normal. Supine and upright views of the abdomen demonstrate multiple air-fluid levels without significant dilatation. No free air is present. The osseous structures appear normal. IMPRESSION: There are multiple air-fluid levels without dilatation, possible enteritis versus mild ileus. Dictated by: Dictated on workstation # [id number]
[2016-11-30 21:04] LABS: BAND NEUTROPHILS 0 %; BASOPHILS % (MANUAL) 1 %; EOSINOPHILS % (MANUAL) 0 %; LYMPHOCYTES % (MANUAL) 11 %; NEUTROPHILS % (MANUAL) 88 %
--- NOTE | 2016-11-30 21:30 | Diagnostic Imaging Report ---
PROCEDURE: CT abdomen and pelvis with contrast. TECHNIQUE: Multiple contiguous axial images were obtained through the abdomen and pelvis after administration of intravenous contrast. INDICATION: Abdominal pain and bloating in the pelvic region with diarrhea for 2 weeks, history of ulcerative colitis, hysterectomy, cholecystectomy and appendectomy. CONTRAST: 100 cc of Omnipaque 350 was given intravenously. COMPARISON STUDY: CT scan dated October. FINDINGS: The lung bases are clear. The gallbladder is absent. The liver, spleen, pancreas, adrenal glands, and kidneys appear normal. No ascites, free air or loculated fluid collections are present. The urinary bladder is normal. The uterus is absent. The bowel loops appear unremarkable. On plain film, these are more suggestive of an enteritis, however, there is only mild enhancement of some left upper quadrant bowel loops. A few mildly prominent fluid-filled loops are present. IMPRESSION: There is mild enhancement of some left upper quadrant bowel loops suggestive of mild enteritis. Dictated by: Dictated on workstation # [id number]
[2016-11-30 21:31] LABS: ERYTHROCYTE SEDIMENTATION RATE 8 MM/HR (0-20)
[2016-11-30] MEDS ORDERED: diphenhydrAMINE 50 MG/ML INJ (BENADRYL) IM ONE (21:45)
[2016-11-30] MEDS ORDERED: DICYCLOMINE 10 MG/ML (BENTYL) 2 ML AMP IM ONE (21:45)
[2016-11-30] MEDS ORDERED: HYOS0.1283 SL (22:11)
[2016-11-30] MEDS ORDERED: SUCR1ORA5 PO (22:11)
[2016-11-30] MEDS ORDERED: PANT40TA2 PO (22:11)
[2016-11-30] MEDS ORDERED: DICY10CA59 PO (22:23)
[2016-11-30 22:29] VITALS: BP 116/111
== END 2016-11-30 22:25 | disposition home or self-care (01) ==
LOC: EDUNIT# 19:05 → ER 19:07
DX: R10.30 Lower abdominal pain, unspecified (principal); G89.29 Other chronic pain; I10 Essential (primary) hypertension; Z79.899 Other long term (current) drug therapy; Z79.891 Long term (current) use of opiate analgesic
CPT/HCPCS: 36415; 51701; 74022; 74177; 80053; 80306; 81000; 82150; 83690; 83735; 84703; 85007; 85027; 85610; 85652; 85730; 96361; 96372; 96374; 96375

== ENCOUNTER 2017-07-04 15:02 | Emergency (ER) | payer SELFPAY ==
[~2017-07-04 15:02] MED LIST changes: +DICY10CA59 PO; +PANT40TA2 PO; +SUCR1ORA5 PO
--- OUTSIDE RECORDS SUMMARY | 2017-07-04 15:07 | XMS REPORT | Clinical Summary ---
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 If you do not see the information that you expected, contact Release of Information in the Health Information Management department at [phone] for further assistance in locating additional records.[facility] Allergies No Known Allergies Current Medications Prescription Sig. [...] Date Thyroid nodule 02/08/2014 Cervical adenopathy 02/08/2014 Family History Medical History Relation Name Comments Allergy-severe Father Heart Attack Maternal Grandfather High Cholesterol Maternal Grandfather Diabetes Mother Migraines Mother Heart Attack Paternal Grandfather High Cholesterol Paternal Grandfather Relation Name Status Comments Brother Alive Brother Alive Father Alive Maternal Grandfather Mother Alive Paternal Grandfather Sister Alive Sister Alive Social History Tobacco Use Types Packs/Day Years Used Date Current Every Day Smoker Cigarettes 0.5 10 Smokeless Tobacco: Never Used Tobacco Cessation: Ready to Quit: Yes; Counseling Given: Yes Comments: Counseling given 4.17.14 Alcohol Use Drinks/Week oz/Week Comments No Sex Assigned at Date Recorded Not on file Last Filed Vital Signs Vital Sign Reading Time Taken Blood Pressure 101/65 04/12/2014 2:24 PM CDT Pulse 89 04/12/2014 2:24 PM CDT Temperature 36.8 C (98.2 F) 02/19/2014 10:42 AM CDT Respiratory Rate - - Oxygen Saturation 93% 02/19/2014 12:30 PM CDT Inhaled Oxygen - - Concentration Weight 67.9 kg (149 lb 9.6 oz) 04/12/2014 2:24 PM CDT Height 157.5 cm (5' 2") 04/12/2014 2:24 PM CDT Body Mass Index 27.36 04/12/2014 2:24 PM CDT Plan of Treatment Health Maintenance Due Date Last Done Comments PHYSICAL (COMPREHENSIVE) 1995 EXAM PERTUSSIS VACCINE 1999 TETANUS VACCINE 2005 CERVICAL CANCER SCREENING 2009 INFLUENZA VACCINE 06/25/2017 Results Not on filefrom Last 3 Months
== END 2017-07-04 15:45 | disposition left against medical advice (07) ==
LOC: EDUNIT# 15:02 → ER 15:04
DX: M79.605 Pain in left leg (principal)

== ENCOUNTER 2018-12-19 14:09 | Emergency (ER) | payer SELFPAY ==
[~2018-12-19] VITALS: Ht 157.5 cm; Wt 50.1 kg
--- NOTE | 2018-12-19 14:24 | ED EENT ---
History of Present Illness General Chief Complaint: Facial Problems Stated Complaint: FACIAL SWELLING;INFECTION Nursing Triage Note: PT STATES HAVING SINUS PRESSURE A COUPLE DAYS AGO, CC TODAY OF WAKING UP WITH RT FACIAL SWELLING. Source: patient Exam Limitations: no limitations History of Present Illness Date Seen by Provider: Dec 19, 2018 Time Seen by Provider: 14:22 Initial Comments To ER with reports of right-sided facial pain and swelling for "couple of days" . She believes this is originating from sinus on the right. Timing/Duration: abrupt Severity: moderate Location: facial Prearrival Treatment: no prearrival treatment Associated Symptoms: facial pain/swelling Allergies and Home Medications Allergies Coded Allergies: NKANo Known Allergies (Verified Allergy, Unknown, 11/30/06) No Known Drug Allergies (Unverified , 01/26/09) Uncoded Allergies: DUST (Allergy, Unknown, 11/09/06) Home Medications Buspirone HCl 5 Mg Tablet, 5 MG PO TID PRN for ANXIETY, (Reported) Ciprofloxacin HCl 500 Mg Tablet, 500 MG PO BID Prescribed by: DILCIA MEDEL on 11/16/16 1149 Citalopram Hydrobromide 20 Mg Tablet, 20 MG PO DAILY, (Reported) Clindamycin HCl 300 Mg Capsule, 300 MG PO TID Prescribed by: DILCIA MEDEL on 12/19/18 1514 Dicyclomine HCl 20 Mg Tablet, Unknown Dose PO QID, (Reported) Dicyclomine HCl 10 Mg Capsule, 10-20 MG PO Q6H PRN for ABDOMINAL PAIN Prescribed by: SERAFIN HAHN on 11/30/16 2223 Hydrocodone/Acetaminophen 1 Each Tablet, 1 TAB PO Q4H, (Reported) Hydrocodone/Acetaminophen 1 Each Tablet, 1 EACH PO Q6H PRN for PAIN-MODERATE do not fill unless clindamycin is also filled. Prescribed by: DILCIA MEDEL on 12/19/18 1514 Hyoscyamine Sulfate 0.125 Mg Tab.subl, 1-2 TAB SL Q4H Prescribed by: SERAFIN HAHN on 11/30/16 221 Metoprolol Tartrate 25 Mg Tablet, 25 MG PO DAILY, (Reported) Metronidazole 500 Mg Tablet, 500 MG PO BID Prescribed by: DILCIA MEDEL on 11/16/16 1149 Pantoprazole Sodium 40 Mg Tablet.dr, 40 MG PO DAILY Prescribed by: SERAFIN HAHN on 11/30/162210 Prednisone 5 Mg Tablet, 5 MG PO UD 60 mg on day 1 then reduced by one tablet daily until gone Prescribed by: DILCIA MEDEL on 11/16/16 1148 Sucralfate 1 Gm/10 Ml Oral.susp, 1 GM PO QID AC AND HS Prescribed by: SERAFIN HAHN on 11/30/162210 Tramadol HCl 50 Mg Tablet, 50 MG PO PRN PRN for PAIN, (Reported) Patient Home Medication List Home Medication List Reviewed: Yes Review of Systems Review of Systems Constitutional: see HPI Eyes: No Symptoms Reported Ears: No Symptoms Reported Nose: see HPI, pain Mouth: see HPI Throat: no symptoms reported Respiratory: no symptoms reported Cardiovascular: no symptoms reported Musculoskeletal: no symptoms reported Past Wagbocw-Lbyyxn-Ccbvkt Hx Patient Social History Alcohol Use: Denies Use Recreational Drug Use: No Type Used: Cigarettes Recent Foreign Travel: No Contact w/Someone Who Travel: No Recent Infectious Disease Expo: No Recent Hopitalizations: No Immunizations Up To Date Tetanus Booster (TDap): Unknown Seasonal Allergies Seasonal Allergies: Yes Past Medical History 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: Yes (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,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,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) Abdominal, Appendectomy, Gallbladder, Hysterectomy, Oophorectomy Respiratory: No Cardiac: No High Cholesterol, Hypertension Neurological: No Reproductive Disorders: No Female Reproductive Disorders: Menstrual Problems, Endometriosis, 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 8.0oz. 50.468528to; 26.33 BMI Method:Stated General Appearance: WD/WN, no apparent distress Eyes: bilateral eye normal inspection, bilateral eye PERRL, bilateral eye EOMI Ears: bilateral ear auricle normal, bilateral ear canal normal, bilateral ear TM normal Mouth/Throat: normal mouth inspection, pharynx normal, maxillary swelling (on the right with swelling and slight erythema of the lower eyelid on the right, not on the upper eyelid. Extraocular muscles are intact.) Neck: non-tender, full range of motion Respiratory: no respiratory distress, no accessory muscle use Gastrointestinal: normal bowel sounds, non tender, soft Neurologic/Psychiatric: alert, normal mood/affect, oriented x 3 Skin: normal color, warm/dry Progress/Results/Core Measures Results/Orders Lab Results Laboratory Tests Test 12/19/18 14:25 12/19/18 14:41 Range/Units White Blood Count 10.5 4.3-11.0 10^3/uL Red Blood Count 4.21 L 4.35-5.85 10^6/uL Hemoglobin 12.5 11.5-16.0 G/DL Hematocrit 39 35-52 % Mean Corpuscular Volume 92 80-99 FL Mean Corpuscular Hemoglobin 30 25-34 PG Mean Corpuscular Hemoglobin Concent 32 32-36 G/DL Red Cell Distribution Width 14.3 10.0-14.5 % Platelet Count 334 130-400 10^3/uL Mean Platelet Volume 8.4 7.4-10.4 FL Neutrophils (%) (Auto) 71 42-75 % Lymphocytes (%) (Auto) 20 12-44 % Monocytes (%) (Auto) 8 0-12 % Eosinophils (%) (Auto) 1 0-10 % Basophils (%) (Auto) 0 0-10 % Neutrophils # (Auto) 7.4 1.8-7.8 X 10^3 Lymphocytes # (Auto) 2.1 1.0-4.0 X 10^3 Monocytes # (Auto) 0.8 0.0-1.0 X 10^3 Eosinophils # (Auto) 0.1 0.0-0.3 10^3/uL Basophils # (Auto) 0.0 0.0-0.1 10^3/uL Sodium Level 141 135-145 MMOL/L Potassium Level 3.8 3.6-5.0 MMOL/L Chloride Level 105 98-107 MMOL/L Carbon Dioxide Level 27 21-32 MMOL/L Anion Gap 9 5-14 MMOL/L Blood Urea Nitrogen 11 7-18 MG/DL Creatinine 0.70 0.60-1.30 MG/DL Estimat Glomerular Filtration Rate > 60 BUN/Creatinine Ratio 16 Glucose Level 94 70-105 MG/DL Calcium Level 9.8 8.5-10.1 MG/DL Corrected Calcium 9.4 8.5-10.1 MG/DL Total Bilirubin 0.3 0.1-1.0 MG/DL Aspartate Amino Transf (AST/SGOT) 15 5-34 U/L Alanine Aminotransferase (ALT/SGPT) 11 0-55 U/L Alkaline Phosphatase 105 40-136 U/L Total Protein 7.2 6.4-8.2 GM/DL Albumin 4.5 3.2-4.5 GM/DL Serum Test, Qualitative NEGATIVE NEGATIVE Lactic Acid Level 1.16 0.50-2.00 MMOL/L My Orders Orders - DILCIA MEDEL APRN Cbc With Automated Diff (12/19/18 14:20) Blood Culture (12/19/18 14:20) Comprehensive Metabolic Panel (12/19/18 14:20) Hcg,Qualitative Serum (12/19/18 14:20) Ct Maxillofacial W (12/19/18 14:20) Lactic Acid Analyzer (12/19/18 14:20) Iv Heplock-Insert (Order) (12/19/18 14:20) Clindamycin 900 Mg/50 Ml Ivpb (Cleocin P (12/19/18 14:30) Ketorolac Injection (Toradol Injection) (12/19/18 14:30) Hydrocodone/Apap 5/325 Tablet (Lortab 5 (12/19/18 14:30) Iohexol Injection (Omnipaque 350 Mg/Ml 1 (12/19/18 14:30) Contrast Received (Contrast Received) (12/19/18 14:30) Ns (Ivpb) (Sodium Chloride 0.9% Ivpb Bag (12/19/18 14:30) Medications Given in ED Current Medications Medications Dose Ordered Sig/Sapphire Route Start Time Stop Time Status Last Admin Dose Admin Acetaminophen/ Hydrocodone Bitart 1 tab ONCE ONCE PO 12/19/18 14:30 12/19/18 14:31 DC 12/19/18 14:35 1 TAB Clindamycin Phosphate/Dextrose 50 ml @ 100 mls/hr ONCE ONCE IV 12/19/18 14:30 12/19/18 14:59 DC 12/19/18 15:05 100 MLS/HR Iohexol 75 ml ONCE ONCE IV 12/19/18 14:30 12/19/18 14:31 DC 12/19/18 14:48 75 ML Ketorolac Tromethamine 15 mg ONCE ONCE IVP 12/19/18 14:30 12/19/18 14:31 DC 12/19/18 14:35 15 MG Sodium Chloride 100 ml ONCE ONCE IV 12/19/18 14:30 12/19/18 14:31 DC 12/19/18 14:48 80 ML Vital Signs/I&O 12/19/18 12/19/18 12/19/18 12/19/18 14:15 14:35 14:35 16:09 Temp 96.9 96.9 96.9 96.9 Pulse 120 99 Resp 18 18 B/P (MAP) 122/83 (96) 104/68 (80) Pulse Ox 100 99 O2 Delivery Room Air Room Air Blood Pressure Mean: 96 Diagnostic Imaging Diagonstic Imaging: CT Comments NAME: THAIS MORTENSEN [facility] REC#: [id number] PT STATUS: REG ER : 1990 PHYSICIAN: DILCIA MEDEL APRN ADMIT DATE: 12/19/18/ER Draft Date of Exam:12/19/18 CT MAXILLOFACIAL W EXAM: CT orbits and maxillofacial area with intravenous contrast. DATE: 12/19/2018. INDICATION: 28-year-old female, right-sided eye swelling. Nausea, vomiting, and fever. No known recent injury. COMPARISON: CT head and maxillofacial area without contrast on October 08, 2008. TECHNIQUE: Axial CT images at the level of the orbits and maxillofacial area were obtained following intravenous administration of contrast. Coronal and sagittal reformats were obtained and provided. FINDINGS: There is prominent right preorbital subcutaneous edema. There is no identified well-demarcated focal fluid collection or abscess. The edema extends along the right side of the nose. There is no identified post septal extension of abnormal attenuation. The globes appear intact. There is no identified retro-orbital abnormality. The extraocular muscles are unremarkable in appearance. There is also abnormal subcutaneous edema in the region of the right cheek extending to the level of the mandible near the midline. There is also no focal fluid collection identified in this region. There is no identified periapical lucency. There is no identified cortical or aggressive bone destruction to suggest osteomyelitis. The parotid and submandibular glands are unremarkable in appearance. Unremarkable appearance of the partially imaged thyroid. There is no identified mucosal or submucosal mass along the surface of the airway. There is no pronounced narrowing of the airway. Additional soft tissue assessment at the level of the neck is unremarkable. There is no identified abnormally enlarged cervical lymph node which meets size criteria for adenopathy. There is mucosal thickening of the inferior aspect of the right maxillary sinus. The additional paranasal sinuses are well aerated. The mastoid air cells and middle ears are well aerated bilaterally. IMPRESSION: 1. Nonspecific right preorbital subcutaneous edema extending in the region of the right side of nose and right cheek to near the midline of the mandible without identified focal fluid collection or abscess. This potentially could reflect cellulitis although is nonspecific. There is no abnormal post septal attenuation to suggest orbital cellulitis. The findings could relate to preorbital cellulitis. 2. No evidence of osteomyelitis. 3. No evidence of acute sinusitis. Dictated on workstation # [id number] Dict: 12/19/18 1519 Trans: 12/19/18 1558 [id number] Interpreted by: LAMBERT GONZALEZ MD Electronically signed by: Departure Impression Primary Impression: Preseptal cellulitis of right lower eyelid Additional Impression: Maxillary sinusitis Qualified Codes: J01.00 - Acute maxillary sinusitis, unspecified Disposition: 01 HOME, SELF-CARE Condition: Stable Departure-Patient Inst. Decision time for Depature: 15:12 Referrals: [facility]/ANH GUTHRIE DO (PCP/Family) Primary Care Physician Patient Instructions: Cellulitis (Skin Infection), Adult (DC), Sinusitis in Adults Add. Discharge Instructions: 1. Return to ER for any concerns 2. Antibiotic as directed. This is the most important thing you can do All discharge instructions reviewed with patient and/or family. Voiced understanding. Scripts Hydrocodone/Acetaminophen (Matthews 5-325 Tablet) 1 Each Tablet 1 EACH PO Q6H PRN for PAIN-MODERATE MDD 10, #10 TAB do not fill unless clindamycin is also filled. Prov: DILCIA MEDEL APRN 12/19/18 Clindamycin HCl (Clindamycin HCl) 300 Mg Capsule 300 MG PO TID, #21 CAP Prov: DILCIA MEDEL APRN 12/19/18 DILCIA MEDEL APRN Dec 19, 2018 14:24
[2018-12-19] MEDS ORDERED: CLINDAMYCIN 900 MG/50 ML IVPB 50 ML IV ONE (14:30)
[2018-12-19] MEDS ORDERED: IOHEXOL 350 MG/ML 100 ML (OMNIPAQUE 350) VIAL IV ONE (14:30)
[2018-12-19] MEDS ORDERED: HYDROcodone/APAP 5 MG/325 MG (LORTAB) TAB PO ONE (14:30)
[2018-12-19] MEDS ORDERED: RECEIVED CONTRAST (Hold Metformin) IV SCH (14:30)
[2018-12-19] MEDS ORDERED: NS 100 ML (IVPB) BAG IV ONE (14:30)
[2018-12-19] MEDS ORDERED: KETOROLAC 30 MG/ML VIAL IVP ONE (14:30)
[2018-12-19 14:33] LABS: BASOPHILS % (AUTO) 0 % (0-10); EOSINOPHILS # (AUTO) 0.1 10^3/uL (0.0-0.3); EOSINOPHILS % (AUTO) 1 % (0-10); HEMATOCRIT 39 % (35-52); HEMOGLOBIN 12.5 G/DL (11.5-16.0); LYMPHOCYTES # (AUTO) 2.1 X 10^3 (1.0-4.0); LYMPHOCYTES % (AUTO) 20 % (12-44); MEAN CORPUSCULAR HEMOGLOBIN 30 PG (25-34); MEAN CORPUSCULAR HGB CONC 32 G/DL (32-36); MEAN CORPUSCULAR VOLUME 92 FL (80-99); MEAN PLATELET VOLUME 8.4 FL (7.4-10.4); MONOCYTES # (AUTO) 0.8 X 10^3 (0.0-1.0); MONOCYTES % (AUTO) 8 % (0-12); NEUTROPHILS # (AUTO) 7.4 X 10^3 (1.8-7.8); NEUTROPHILS % (AUTO) 71 % (42-75); PLATELET COUNT 334 10^3/uL (130-400); RED CELL DISTRIBUTION WIDTH 14.3 % (10.0-14.5); WHITE BLOOD COUNT 10.5 10^3/uL (4.3-11.0)
[2018-12-19 14:51] LABS: ALANINE AMINOTRANSFERASE 11 U/L (0-55); ALBUMIN 4.5 GM/DL (3.2-4.5); ALKALINE PHOSPHATASE 105 U/L (40-136); BILIRUBIN,TOTAL 0.3 MG/DL (0.1-1.0); BUN/CREATININE RATIO 16; CALCIUM 9.8 MG/DL (8.5-10.1); CARBON DIOXIDE 27 MMOL/L (21-32); CHLORIDE 105 MMOL/L (98-107); GFR ESTIMATED > 60; GLUCOSE 94 MG/DL (70-105); POTASSIUM 3.8 MMOL/L (3.6-5.0); SODIUM 141 MMOL/L (135-145); TOTAL PROTEIN 7.2 GM/DL (6.4-8.2)
[2018-12-19] MEDS ORDERED: HYDR-4226 PO (15:14)
[2018-12-19] MEDS ORDERED: CLIN300C11 PO (15:14)
--- NOTE | 2018-12-19 15:58 | Diagnostic Imaging Report ---
EXAM: CT orbits and maxillofacial area with intravenous contrast. DATE: 12/19/2018. INDICATION: 28-year-old female, right-sided eye swelling. Nausea, vomiting, and fever. No known recent injury. COMPARISON: CT head and maxillofacial area without contrast on October 08, 2008. TECHNIQUE: Axial CT images at the level of the orbits and maxillofacial area were obtained following intravenous administration of contrast. Coronal and sagittal reformats were obtained and provided. FINDINGS: There is prominent right preorbital subcutaneous edema. There is no identified well-demarcated focal fluid collection or abscess. The edema extends along the right side of the nose. There is no identified post septal extension of abnormal attenuation. The globes appear intact. There is no identified retro-orbital abnormality. The extraocular muscles are unremarkable in appearance. There is also abnormal subcutaneous edema in the region of the right cheek extending to the level of the mandible near the midline. There is also no focal fluid collection identified in this region. There is no identified periapical lucency. There is no identified cortical or aggressive bone destruction to suggest osteomyelitis. The parotid and submandibular glands are unremarkable in appearance. Unremarkable appearance of the partially imaged thyroid. There is no identified mucosal or submucosal mass along the surface of the airway. There is no pronounced narrowing of the airway. Additional soft tissue assessment at the level of the neck is unremarkable. There is no identified abnormally enlarged cervical lymph node which meets size criteria for adenopathy. There is mucosal thickening of the inferior aspect of the right maxillary sinus. The additional paranasal sinuses are well aerated. The mastoid air cells and middle ears are well aerated bilaterally. IMPRESSION: 1. Nonspecific right preorbital subcutaneous edema extending in the region of the right side of nose and right cheek to near the midline of the mandible without identified focal fluid collection or abscess. This potentially could reflect cellulitis although is nonspecific. There is no abnormal post septal attenuation to suggest orbital cellulitis. The findings could relate to preorbital cellulitis. 2. No evidence of osteomyelitis. 3. No evidence of acute sinusitis. Dictated by: Dictated on workstation # [id number]
[2018-12-19 16:09] VITALS: BP 104/68
== END 2018-12-19 16:08 | disposition home or self-care (01) ==
LOC: EDUNIT# 14:09 → ER 14:10
DX: H00.032 Abscess of right lower eyelid (principal); J32.0 Chronic maxillary sinusitis; E78.00 Pure hypercholesterolemia, unspecified; I10 Essential (primary) hypertension; K21.9 Gastro-esophageal reflux disease without esophagitis; K58.9 Irritable bowel syndrome, unspecified; E05.90 Thyrotoxicosis, unspecified without thyrotoxic crisis or storm; F41.9 Anxiety disorder, unspecified; F32.9 Major depressive disorder, single episode, unspecified; Z87.19 Personal history of other diseases of the digestive system; Z87.448 Personal history of other diseases of urinary system; Z79.52 Long term (current) use of systemic steroids; Z90.49 Acquired absence of other specified parts of digestive tract; Z90.710 Acquired absence of both cervix and uterus
CPT/HCPCS: 36415; 70487; 80053; 83605; 84703; 85025; 87040; 96365; 96375

== ENCOUNTER 2020-01-17 21:49 | Emergency (ER) | payer SELFPAY ==
[~2020-01-17] VITALS: Ht 157 cm; Wt 61.7 kg
[~2020-01-17 21:49] MED LIST changes: +ACHYD1T PO; +CLIN300C11 PO; -HYDR-3820 PO; +HYDR-4226 PO; -TRAM50TA2 PO
--- NOTE | 2020-01-17 22:06 | ED EENT ---
History of Present Illness General Chief Complaint: Facial Problems Stated Complaint: LT EYE IS SWOLLEN History of Present Illness Date Seen by Provider: Jan 17, 2020 Time Seen by Provider: 22:00 Initial Comments 29 -year-old female presents for swelling to her left cheek. She had a similar incident around her right eye approximately one year ago. She reports symptoms began yesterday morning. She tried calling her PCP and was told to start Benadryl. She's been applying ice packs with no improvement in her symptoms. She denies running any fevers. She's been taking Tylenol and ibuprofen. Timing/Duration: yesterday Location: eye (L) Prearrival Treatment: over the counter meds Associated Symptoms: denies symptoms Allergies and Home Medications Allergies Coded Allergies: NKANo Known Allergies (Verified Allergy, Unknown, 11/30/06) No Known Drug Allergies (Unverified , 01/26/09) Uncoded Allergies: DUST (Allergy, Unknown, 11/09/06) Home Medications Buspirone HCl 5 Mg Tablet, 5 MG PO TID PRN for ANXIETY, (Reported) Ciprofloxacin HCl 500 Mg Tablet, 500 MG PO BID Prescribed by: DILCIA MEDEL on 11/16/16 1149 Citalopram Hydrobromide 20 Mg Tablet, 20 MG PO DAILY, (Reported) Clindamycin HCl 300 Mg Capsule, 300 MG PO TID Prescribed by: DILCIA MEDEL on 12/19/18 1514 Dicyclomine HCl 20 Mg Tablet, Unknown Dose PO QID, (Reported) Dicyclomine HCl 10 Mg Capsule, 10-20 MG PO Q6H PRN for ABDOMINAL PAIN Prescribed by: SERAFIN HAHN on 11/30/16 2223 Hydrocodone Bit/Acetaminophen 1 Each Tablet, 1 TAB PO Q4H, (Reported) Hydrocodone/Acetaminophen 1 Each Tablet, 1 EACH PO Q6H PRN for PAIN-MODERATE do not fill unless clindamycin is also filled. Prescribed by: DILCIA MEDEL on 12/19/18 1514 Hyoscyamine Sulfate 0.125 Mg Tab.subl, 1-2 TAB SL Q4H Prescribed by: SERAFIN HAHN on 11/30/16 2211 Metoprolol Tartrate 25 Mg Tablet, 25 MG PO DAILY, (Reported) Metronidazole 500 Mg Tablet, 500 MG PO BID Prescribed by: DILCIA MEDEL on 11/16/16 1149 Pantoprazole Sodium 40 Mg Tablet.dr, 40 MG PO DAILY Prescribed by: SERAFIN HAHN on 11/30/162210 Prednisone 5 Mg Tablet, 5 MG PO UD 60 mg on day 1 then reduced by one tablet daily until gone Prescribed by: DILCIA MEDEL on 11/16/16 1148 Sucralfate 1 Gm/10 Ml Oral.susp, 1 GM PO QID AC AND HS Prescribed by: SERAFIN HAHN on 11/30/162210 Tramadol HCl 50 Mg Tablet, 50 MG PO PRN PRN for PAIN, (Reported) Patient Home Medication List Home Medication List Reviewed: Yes Review of Systems Review of Systems Constitutional: no symptoms reported, see HPI Eyes: No Symptoms Reported, See HPI; Denies Drainage, Denies Foreign Body Sensation, Denies Inflammation, Denies Pain, Denies Vision Changes Nose: see HPI, congestion Skin: see HPI, other (swelling and erythema to left cheek) All Other Systems Reviewed Negative Unless Noted: Yes Past Buxlnak-Qkeluy-Bftkrv Hx Past Med/Social Hx: Reviewed Nursing Past Med/Soc Hx Patient Social History Alcohol Use: Denies Use Recreational Drug Use: No Type Used: Cigarettes Recent Hopitalizations: No Physical Abuse: No Sexual Abuse: No Mistreated: No Fear: No Immunizations Up To Date Tetanus Booster (TDap): Unknown Seasonal Allergies Seasonal Allergies: Yes Past Medical History 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: Yes (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,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) Abdominal, Appendectomy, Gallbladder, Hysterectomy, Oophorectomy Respiratory: No Cardiac: No High Cholesterol Neurological: No Reproductive Disorders: No Female Reproductive Disorders: Menstrual Problems, Endometriosis, 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 8.0oz. 50.853682na; 26.33 BMI Method:Stated General Appearance: WD/WN, no apparent distress Eyes: bilateral eye normal inspection, bilateral eye PERRL, bilateral eye EOMI (without pain) Ears: bilateral ear auricle normal, bilateral ear canal normal, bilateral ear TM normal Nose: normal inspection; No discharge; sinus tenderness (left maxillary), other (soft tissue swelling and trace erythema, no induration or fluctuance to left cheek. No pain with EOM, equal bilat. ) Mouth/Throat: normal mouth inspection, pharynx normal; No mandibular swelling Neck: full range of motion, supple, normal inspection, lymphadenopathy (L) Cardiovascular: normal peripheral pulses, regular rate, rhythm Respiratory: chest non-tender, lungs clear Gastrointestinal: normal bowel sounds, non tender, soft Neurologic/Psychiatric: no motor/sensory deficits, alert, normal mood/affect, oriented x 3 Skin: normal color, warm/dry Progress/Results/Core Measures Results/Orders My Orders Orders - DIGNA NATION Clindamycin Capsule (Cleocin Capsule) (01/17/20 22:18) Hydrocodone/Apap 7.5/325 Tab (Lortab 7. (01/17/20 22:30) Rx-Clindamycin Capsule (Rx-Cleocin Capsu (01/17/20 22:19) Rx-Hydrocodone/Apap 5-325 Mg (Rx-Vicodin (01/17/20 22:30) Vital Signs/I&O 01/17/20 21:58 Temp 37.1 Pulse 111 Resp 18 B/P (MAP) 123/83 (96) O2 Delivery Room Air Departure Impression Primary Impression: Cellulitis of face Disposition: 01 HOME, SELF-CARE Condition: Improved Departure-Patient Inst. Decision time for Depature: 22:25 Referrals: ANH HOOKS DO (PCP/Family) Primary Care Physician Patient Instructions: Cellulitis (Skin Infection), Adult (DC) Add. Discharge Instructions: Alternate heat and ice to the left cheek for 20 minutes every 2 hours while awake. Drink 16 ounces of water every 2 hours while awake. Take antibiotics as prescribed. Take the hydrocodone for pain every 6 hours if it is severe. When pain is mild take ibuprofen 600 mg every 8 hours. If symptoms are not improving or worsen, call your primary care provider tomorrow or go to the [facility] walk-in clinic. Seek medical care immediately, if it become painful to move your left eye. Return to the emergency department for new, urgent health care problems. All discharge instructions reviewed with patient and/or family. Voiced understanding. Scripts Clindamycin HCl (Clindamycin HCl) 300 Mg Capsule 300 MG PO Q8H, #21 CAP 0 Refills Prov: DIGNA NATION 01/17/20 DIGNA NATION Jan 17, 2020 22:06
[2020-01-17] MEDS ORDERED: CLINDAMYCIN 150 MG (CLEOCIN) CAP PO STA (22:18)
[2020-01-17] MEDS ORDERED: RX-CLINDAMYCIN 150 MG (CLEOCIN) CAP PPK#4 PO STA (22:19)
[2020-01-17] MEDS ORDERED: CLIN300C11 PO (22:24)
[2020-01-17] MEDS ORDERED: HYDROcodone/APAP 7.5 MG/325 MG (LORTAB, LORCET PLUS) TABLET PO ONE (22:30)
[2020-01-17] MEDS ORDERED: RX-HYDROCODONE/APAP 5/325 MG #4 TAB PK PO PRN (22:30)
[2020-01-17 22:38] VITALS: BP 110/77
--- NOTE | 2020-01-18 14:29 | NUR ---
Pt's mother called reporting RX was too expensive and asked if RX could be changed. Mychal Zapata changed RX to Keflex 500 mg PO QID #40. RX called to [facility] per mother's request.
== END 2020-01-17 22:38 | disposition home or self-care (01) ==
LOC: EDUNIT# 21:49 → ER 21:51
DX: L03.211 Cellulitis of face (principal); Z90.49 Acquired absence of other specified parts of digestive tract; Z90.710 Acquired absence of both cervix and uterus; Z90.722 Acquired absence of ovaries, bilateral; E78.00 Pure hypercholesterolemia, unspecified; K21.9 Gastro-esophageal reflux disease without esophagitis; K58.9 Irritable bowel syndrome, unspecified; E05.90 Thyrotoxicosis, unspecified without thyrotoxic crisis or storm; F41.9 Anxiety disorder, unspecified; F32.9 Major depressive disorder, single episode, unspecified
CPT/HCPCS: 99283

== ENCOUNTER 2021-01-06 13:13 | Emergency (ER) | payer SELFPAY ==
[~2021-01-06] VITALS: Ht 157.5 cm; Wt 58.1 kg
[~2021-01-06 13:13] MED LIST changes: -CLIN300C11 PO; +CLIN300C12 PO
--- NOTE | 2021-01-06 13:32 | ED Upper Extremity ---
General Chief Complaint: Upper Extremity Stated Complaint: R WRIST PAIN Nursing Triage Note: PT AMBULATE TO TRIAGE WITH C/O RIGHT WRIST PAIN. PT REPORT FX OF RIGHT WRIST X2 YEARS AGO AND STATES THAT SHE REINJURED RIGHT WRIST TODAY WHILE EXERCISING. Nursing Sepsis Screen: No Definite Risk Source: patient Exam Limitations: no limitations History of Present Illness Date Seen by Provider: Jan 06, 2021 Time Seen by Provider: 13:31 Initial Comments Was exercising prior to arrival, heard a pop and had immediate pain in right wrist. States she broke her wrist two years ago and did not follow up at that time, for proper healing. She is concerned she has injured her wrist again. Sharp pain on both lateral and medial aspects of her wrist. No numbness/tingling/loss of sensation. Onset: just prior to arrival Allergies and Home Medications Allergies Coded Allergies: NKANo Known Allergies (Verified Allergy, Unknown, 11/30/06) No Known Drug Allergies (Unverified , 01/26/09) Uncoded Allergies: DUST (Allergy, Unknown, 11/09/06) Home Medications Buspirone HCl 5 Mg Tablet, 5 MG PO TID PRN for ANXIETY, (Reported) Ciprofloxacin HCl 500 Mg Tablet, 500 MG PO BID Prescribed by: DILCIA MEDEL on 11/16/16 1149 Citalopram Hydrobromide 20 Mg Tablet, 20 MG PO DAILY, (Reported) Clindamycin HCl 300 Mg Capsule, 300 MG PO TID Prescribed by: DILCIA MEDEL on 12/19/18 151 Clindamycin HCl 300 Mg Capsule, 300 MG PO Q8H Prescribed by: DIGNA NATION on 01/17/20 2224 Dicyclomine HCl 20 Mg Tablet, Unknown Dose PO QID, (Reported) Dicyclomine HCl 10 Mg Capsule, 10-20 MG PO Q6H PRN for ABDOMINAL PAIN Prescribed by: SERAFIN HAHN on 11/30/16 222 Hydrocodone Bit/Acetaminophen 1 Each Tablet, 1 TAB PO Q4H, (Reported) Hydrocodone/Acetaminophen 1 Each Tablet, 1 EACH PO Q6H PRN for PAIN-MODERATE do not fill unless clindamycin is also filled. Prescribed by: DILCIA MEDEL on 12/19/18 1514 Hyoscyamine Sulfate 0.125 Mg Tab.subl, 1-2 TAB SL Q4H Prescribed by: SERAFIN HAHN on 11/30/162210 Metoprolol Tartrate 25 Mg Tablet, 25 MG PO DAILY, (Reported) Metronidazole 500 Mg Tablet, 500 MG PO BID Prescribed by: DILCIA MEDEL on 11/16/16 114 Pantoprazole Sodium 40 Mg Tablet.dr, 40 MG PO DAILY Prescribed by: SERAFIN HAHN on 11/30/162210 Prednisone 5 Mg Tablet, 5 MG PO UD 60 mg on day 1 then reduced by one tablet daily until gone Prescribed by: DILCIA MEDEL on 11/16/16 114 Sucralfate 1 Gm/10 Ml Oral.susp, 1 GM PO QID AC AND HS Prescribed by: SERAFIN HAHN on 11/30/162210 Tramadol HCl 50 Mg Tablet, 50 MG PO PRN PRN for PAIN, (Reported) Tramadol HCl 50 Mg Tablet, 50 MG PO Q6H PRN for PAIN Prescribed by: MAYA TOVAR on 01/06/21 1448 Patient Home Medication List Home Medication List Reviewed: Yes Review of Systems Constitutional: no symptoms reported EENTM: no symptoms reported Respiratory: no symptoms reported Cardiovascular: no symptoms reported Gastrointestinal: no symptoms reported Genitourinary: no symptoms reported Musculoskeletal: see HPI Skin: no symptoms reported Psychiatric/Neurological: No Symptoms Reported Past Tzjqwxu-Goadga-Mxuqwy Hx Patient Social History Alcohol Use: Denies Use Smoking Status: Current Everyday Smoker Type Used: Cigarettes 2nd Hand Smoke Exposure: Yes Recent Infectious Disease Expo: No Recent Hopitalizations: No Immunizations Up To Date Tetanus Booster (TDap): Unknown Seasonal Allergies Seasonal Allergies: Yes Past Medical History Surgeries: Yes (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,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.CYSTS) Abdominal, Appendectomy, Gallbladder, Hysterectomy, Oophorectomy Respiratory: No Cardiac: No High Cholesterol Neurological: No Reproductive Disorders: No Female Reproductive Disorders: Menstrual Problems, Endometriosis, Ovarian Cyst 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 Sexually Transmitted Disease: No Genitourinary: No Gastrointestinal: Yes (ULCERATIVE COLITIS) Colitis, Gastroesophageal Reflux, Irritable Bowel Musculoskeletal: No Endocrine: Yes Hyperthyroidism HEENT: No Cancer: No Psychosocial: Yes Sleep Difficulties, Anxiety, Depression Integumentary: No Blood Disorders: No Family Medical History No Pertinent Family Hx Physical Exam Vital Signs Vital Signs - First Documented 01/06/21 01/06/21 13:23 14:53 Temp 36.9 Pulse 117 Resp 16 B/P (MAP) 113/78 (90) Pulse Ox 100 O2 Delivery Room Air Capillary Refill : Less Than 3 Seconds Height, Weight, BMI Height: 5'2" Weight: 110lbs. 8.0oz. [id number]; 23.00 BMI Method:Stated General Appearance: WD/WN, no apparent distress HEENT: normal ENT inspection, pharynx normal Neck: full range of motion, normal inspection Cardiovascular: regular rate, rhythm, no murmur Respiratory: lungs clear, normal breath sounds Gastrointestinal: normal bowel sounds, non tender, soft Shoulder: normal inspection, no evidence of injury Elbow/Forearm: normal inspection, no evidence of injury Wrist: Yes deformity, Yes pain, Yes soft tissue tenderness Hand: normal inspection, no evidence of injury Neurologic/Tendon: normal sensation, normal motor functions, normal tendon functions, responds to pain Neurologic/Psychiatric: no motor/sensory deficits, alert, normal mood/affect, oriented x 3 Skin: normal color, warm/dry Progress/Results/Core Measures Results/Orders My Orders Orders - MAYA TOVAR APRN Wrist, Right, 3 Views Or More (01/06/21 13:38) Fentanyl Injection (Sublimaze Injection (01/06/21 13:45) Medications Given in ED Vital Signs/I&O Blood Pressure Mean: 90 Progress Progress Note : Progress Note Pt. examined and in no acute distress. Neurovascular function intact distal to injury. Orders placed for Fentanyl inj. IM, radiographs of right wrist ordered. X-rays show no acute fractures. Discussed f/u up in 7-10 days if symptoms persists for repeat imaging. Reviewed discharge plan and she is agreeable with plan. Provided with velcro splint at discharge. Diagnostic Imaging Diagonstic Imaging: Xray Comments NAME: [facility] REC#: [id number] PT STATUS: DEP ER : 1990 PHYSICIAN: MAYA TOVAR APRN ADMIT DATE: 01/06/21/ER Signed Date of Exam:01/06/21 WRIST, RIGHT, 3 VIEWS OR MORE INDICATION: Right wrist injury with pain. AP, oblique and lateral views of the right wrist reveal old angulated fracture deformity in the distal shaft of radius. There are also corticated ossific densities adjacent to the distal ulna however no acute fracture is identified. No abnormal lytic or sclerotic focus is identified. IMPRESSION: Old traumatic deformities involving distal radius and ulna without radiographic evidence of acute osseous abnormality. Dictated by: Dictated on workstation # [id number] Dict: 01/06/21 1418 Trans: 01/06/21 1604 [facility] [id number] Interpreted by: MAYRA CLAY MD Electronically signed by: MAYRA CLAY MD 01/06/21 1604 Reviewed: Reviewed by Me Departure Impression Primary Impression: Wrist pain, right Disposition: 01 HOME, SELF-CARE Condition: Improved Departure-Patient Inst. Decision time for Depature: 14:47 Referrals: [facility]/ (PCP) Primary Care Physician POONAM NELSON (Family) Primary Care Physician Patient Instructions: Wrist Sprain (DC) Add. Discharge Instructions: Plan: 1. Discharge home. Do not drive while taking Tramadol. 2. Follow up with Ortho provider of choice next week if symptoms persist. 3. Keep affected site elevated above your heart over the next 72 hours to reduce swelling and pain. 4. Apply ice 20 minutes at a time 4-6x per day. 5. Return to ER for any new, worsening, or concerning symptoms. All discharge instructions reviewed with patient and/or family. Voiced unders tanding. Scripts Tramadol HCl (Tramadol HCl) 50 Mg Tablet 50 MG PO Q6H PRN for PAIN for 3 Days, #12 TAB 0 Refills Prov: MAYA TOVAR APRN 01/06/21 MAYA TOVAR APRN Jan 06, 2021 13:31
[2021-01-06] MEDS ORDERED: fentaNYL INJECTION 100 MCG/2 ML AMP IM ONE (13:45)
--- NOTE | 2021-01-06 14:21 | Diagnostic Imaging Report ---
INDICATION: Right wrist injury with pain. AP, oblique and lateral views of the right wrist reveal old angulated fracture deformity in the distal shaft of radius. There are also corticated ossific densities adjacent to the distal ulna however no acute fracture is identified. No abnormal lytic or sclerotic focus is identified. IMPRESSION: Old traumatic deformities involving distal radius and ulna without radiographic evidence of acute osseous abnormality. Dictated by: Dictated on workstation # [id number]
[2021-01-06] MEDS ORDERED: TRM50T PO (14:48)
[2021-01-06 14:53] VITALS: BP 119/64
== END 2021-01-06 14:53 | disposition home or self-care (01) ==
LOC: EDUNIT# 13:13 → ER 13:15
DX: M25.531 Pain in right wrist (principal); K21.9 Gastro-esophageal reflux disease without esophagitis; K58.9 Irritable bowel syndrome, unspecified; F41.9 Anxiety disorder, unspecified; F32.9 Major depressive disorder, single episode, unspecified; F17.210 Nicotine dependence, cigarettes, uncomplicated; Z79.52 Long term (current) use of systemic steroids; X50.1XXA Overexertion from prolonged static or awkward postures, initial encounter; Y93.B9 Activity, other involving muscle strengthening exercises
CPT/HCPCS: 73110